=== PATIENT | male | born 1960 | race Caucasian/White ===

== ENCOUNTER 2018-12-27 09:54 | Observation (INO) | payer SELFPAY ==
[2018-12-27 10:18] LABS: Protime INR 0.89
[2018-12-27 10:37] LABS: Absolute Lymphocytes (CBC) 0.6 K/uL (0.7-4.9); Basophils % 0.8 % (0-1.3); Hematocrit 52.1 % (39.6-49.0); Lymphocytes % 12.8 % (15.3-44.8); MPV 7.5 fL (7.6-11.3); RBC Red Blood Cell Count 5.43 M/uL (4.33-5.43)
--- NOTE | 2018-12-27 10:38 | RAD REPORT ---
EXAM DESCRIPTION: RAD - Chest Single View - 12/27/2018 10:32 am CLINICAL HISTORY: CHEST PAIN Chest pain. COMPARISON: No comparisons FINDINGS: Portable technique limits examination quality. Small calcified granulomata are seen in the lungs. The lungs are otherwise clear. The heart is normal in size. No displaced fractures. IMPRESSION: No acute intrathoracic process suspected.
[2018-12-27 10:43] LABS: ALT/SGPT 42 U/L (12-78); AST/SGOT 34 U/L (15-37); Albumin 4.2 g/dL (3.4-5.0); Alkaline Phosphatase 77 U/L (45-117); BUN Blood Urea Nitrogen 5 mg/dL (7-18); Bicarbonate 26 mmol/L (21-32); Bilirubin Direct 0.3 mg/dL (0-0.2); Bilirubin Total 1.1 mg/dL (0.2-1.0); Glucose Level 107 mg/dL (74-106); Magnesium 2.2 mg/dL (1.8-2.4); NT PRO-BNP 43 pg/mL (<125); Protein, Total 7.5 g/dL (6.4-8.2); Sodium Level 130 mmol/L (136-145); Troponin (Emerg Dept Use Only) < 0.02 ng/mL (0.0-0.045)
--- NOTE | 2018-12-27 10:58 | EKG ---
Test Date: 2018-12-27 Test Time: 09:55:07 Certified Medicine Aide: PERCY MEASUREMENT RESULTS: Intervals: Rate: 107 VA: 158 QRSD: 80 QT: 314 QTc: 419 [place]: P: 61 VA: 158 QRS: 19 T: 63 INTERPRETIVE STATEMENTS: Sinus tachycardia Possible Left atrial enlargement Borderline ECG No previous ECG available for comparison Electronically Signed On 12-27-18 10:57:15 STEWARD/STEWARDESS BATH by Shawn Loredo
--- NOTE | 2018-12-27 11:23 | RAD REPORT ---
EXAM DESCRIPTION: CT - Chest For Pe Angio - 12/27/2018 11:12 am CLINICAL HISTORY: Chest pain. CHEST PAIN COMPARISON: No comparisons TECHNIQUE: CT angiogram of the pulmonary arteries was performed with MIP. All CT scans are performed using dose optimization technique as appropriate and may include automated exposure control or mA/KV adjustment according to patient size. FINDINGS: No evidence of pulmonary thromboembolism. No acute aortic finding demonstrated. The lungs are clear except for several small calcified granulomata bilaterally. No worrisome nodule, mass or infiltrate. No significant pericardial or pleural fluid. No concerning bony finding. IMPRESSION: No evidence of pulmonary thromboembolism. No acute lung findings.
--- NOTE | 2018-12-27 11:50 | ER ---
Nurse's Notes [facility] Name: Sukh Lam Age: 58 yrs Sex: Male : 1960 Arrival Date: 12/27/2018 Time: 09:59 Bed 16 Private MD: Diagnosis: Chest pain, unspecified Presentation: 12/27 09:59 Presenting complaint: EMS states: Left sided chest pain, radiates to left arm, rated jl7 8/10, cool and clammy on arrival. Initial HR 137, BP 165/110, 97% RA. 325 mg asp and Nitro SL x 1 given, pt report pain 3/10. HR 110s, BP 153/110, pain rated 3/10. Transition of care: patient was not received from another setting of care. Onset of symptoms was December 27, 2018 at 09:15. Risk Assessment: Do you want to hurt yourself or someone else? Patient reports no desire to harm self or others. Initial Sepsis Screen: Does the patient meet any 2 criteria? No. Patient's initial sepsis screen is negative. Does the patient have a suspected source of infection? No. Patient's initial sepsis screen is negative. Care prior to arrival: Medication(s) given: ASA, 325 mg, Nitro SL x 1 IV initiated. 20 GA, in the left antecubital area, Oxygen administered. via nasal cannula. 09:59 [facility] Of Ar[facility] 09:59 Acuity: JESSE 2 jl7 Historical: - Allergies: 10:05 PENICILLINS; jl7 - Home Meds: 10:05 None [Active]; jl7 - PMHx: 10:05 None; jl7 - PSHx: 10:05 Knee surgery; shoulder- right; jl7 - Immunization history:: Adult Immunizations unknown. - Social history:: Smoking status: Patient uses tobacco products, smokes one pack cigarettes per day. - Ebola Screening: : No symptoms or risks identified at this time. - Family history:: not pertinent. - Hospitalizations: : No recent hospitalization is reported. Screenin:05 Abuse screen: Denies threats or abuse. Denies injuries from another. Nutritional jl7 screening: No deficits noted. Tuberculosis screening: No symptoms or risk factors identified. Fall Risk IV access (20 points). Total Knutson Fall Scale indicates No Risk (0-24 pts). Assessment: 10:05 General: Appears in no apparent distress. uncomfortable, Behavior is calm, cooperative, jl7 appropriate for age. Pain: Complains of pain in mid-sternal area Pain radiates to left arm Pain currently is 3 out of 10 on a pain scale. at worst was 8 out of 10 on a pain scale. Quality of pain is described as dull, Pain began 30 min ago. Is intermittent. Neuro: Level of Consciousness is awake, alert, obeys commands, Oriented to person, place, time, situation. Cardiovascular: Heart tones S1 S2 present Patient's skin is warm and dry. Rhythm is sinus tachycardia. Respiratory: Airway is patent Respiratory effort is even, unlabored, Respiratory pattern is symmetrical, tachypnea Breath sounds are clear bilaterally. GI: No signs and/or symptoms were reported involving the gastrointestinal system. Patient currently denies nausea. : No signs and/or symptoms were reported regarding the genitourinary system. EENT: No signs and/or symptoms were reported regarding the EENT system. Derm: Skin is pink, warm \T\ dry. Musculoskeletal: No signs and/or symptoms reported regarding the musculoskeletal system. 11:00 Reassessment: Patient appears in no apparent distress at this time. No changes from jl7 previously documented assessment. Patient and/or family updated on plan of care and expected duration. Pain level reassessed. Patient is alert, oriented x 3, equal unlabored respirations, skin warm/dry/pink. 12:00 Reassessment: Patient appears in no apparent distress at this time. No changes from jl7 previously documented assessment. Patient and/or family updated on plan of care and expected duration. Pain level reassessed. Patient is alert, oriented x 3, equal unlabored respirations, skin warm/dry/pink. 12:03 Reassessment: Dr. Sung at bedside. jl7 13:15 Reassessment: Patient appears in no apparent distress at this time. No changes from jl7 previously documented assessment. Patient and/or family updated on plan of care and expected duration. Pain level reassessed. Patient is alert, oriented x 3, equal unlabored respirations, skin warm/dry/pink. Vital Signs: 10:05 BP 153 / 101; Pulse 115; Resp 22 S; Temp 98.3; Pulse Ox 100% on R/A; Pain 3/10; jl7 10:36 BP 137 / 104; Pulse 110; Resp 23 S; Pulse Ox 98% on R/A; jl7 12:01 BP 146 / 101; Pulse 98; Resp 23 S; Pulse Ox 96% on R/A; jl7 ED Course: 09:59 Patient arrived in ED. jl7 09:59 EKG done, by cath lab technologist. reviewed by Anand Espinal MD. at1 10:00 Sravani Messina MD is Attending Physician. ma2 10:02 Attending Physician role handed off by Sravani Messina MD rn 10:02 Anand Espinal MD is Attending Physician. rn 10:04 Triage completed. jl7 10:04 Initial lab(s) drawn, by me, sent to lab. Maintain EMS IV. Dressing intact. Good blood ms return noted. Site clean \T\ dry. Gauge \T\ site: 18g left ac. 10:05 Patient maintains SpO2 saturation greater than 95% on room air. jl7 10:05 Arm band placed on right wrist. jl7 10:05 Patient has correct armband on for positive identification. Bed in low position. Call jl7 light in reach. Side rails up X 1. broker assistant on. Pulse ox on. NIBP on. 10:34 Daryl Prieto, DARREN is Primary Nurse. jl7 10:36 XRAY Chest (1 view) In Process Unspecified. EDMS 11:13 CT Chest For PE Angio In Process Unspecified. EDMS 11:48 Rey Sung DO is Hospitalizing Provider. rn 13:58 No provider procedures requiring assistance completed. Patient admitted, IV remains in jl7 place. intact, No redness/swelling at site. Administered Medications: No medications were administered Outcome: 11:49 Decision to Hospitalize by Provider. rn 13:58 Admitted to Tele accompanied by tech, via wheelchair, room 209, with chart, Report jl7 called to DARREN Carpio 13:58 Condition: stable 13:58 Discharge instructions given to patient, Instructed on the need for admit, Demonstrated understanding of instructions. 14:02 Patient left the ED. jl7 Signatures: Dispatcher [employer] EDMS Ailyn Reeder ms Anand Espinal MD MD rn Cecilia Reed, hematologist oncologist EKG Tat1 Daryl Prieto RN RN [email or web address] Tristan Messinad, MD ma2
--- NOTE | 2018-12-27 11:50 | EDPHYS ---
Physician Documentation [facility] Name: Sukh Lam Age: 58 yrs Sex: Male : 1960 Arrival Date: 12/27/2018 Time: 09:59 Bed 16 Private MD: ED Physician Anand Espinal HPI: 12/27 11:42 This 58 yrs old Male presents to ER via EMS with complaints of Chest Pain > rn 29 y/o. 11:42 The patient or guardian reports chest pain that is located primarily in the anterior rn chest wall, left. Onset: just prior to arrival. The pain radiates to the left arm. Associated signs and symptoms: Pertinent positives: diaphoresis, lightheadedness, palpitations, shortness of breath, Pertinent negatives: abdominal pain, cough, syncope, vomiting. The chest pain is described as dull. Duration: The patient or guardian reports a single episode, that is still ongoing. Modifying factors: The symptoms are alleviated by NTG, the symptoms are aggravated by nothing. Severity of pain: At its worst the pain was moderate in the emergency department the pain has improved. The patient has not experienced similar symptoms in the past. Reports smoker, at work, at rest, sudden onset left sided chest pain radiating to left arm, diaphoresis, and sob.. Historical: - Allergies: 10:05 PENICILLINS; jl7 - Home Meds: 10:05 None [Active]; jl7 - PMHx: 10:05 None; jl7 - PSHx: 10:05 Knee surgery; shoulder- right; jl7 - Immunization history:: Adult Immunizations unknown. - Social history:: Smoking status: Patient uses tobacco products, smokes one pack cigarettes per day. - Ebola Screening: : No symptoms or risks identified at this time. - Family history:: not pertinent. - Hospitalizations: : No recent hospitalization is reported. ROS: 11:42 Constitutional: Negative for fever, chills, and weight loss, Eyes: Negative for injury, rn pain, redness, and discharge, Neck: Negative for injury, pain, and swelling, Cardiovascular: Negative for palpitations, and edema, Respiratory: Negative for cough, wheezing Abdomen/GI: Negative for abdominal pain, nausea, vomiting, diarrhea, and constipation, MS/Extremity: Negative for injury and deformity, Skin: Negative for injury, rash, and discoloration, Neuro: Negative for headache, weakness, numbness, tingling, and seizure. Exam: 10:03 ECG was reviewed by the Attending Physician. rn 11:42 Constitutional: This is a well developed, well nourished patient who is awake, alert, rn appears anxious Head/Face: Normocephalic, atraumatic. ENT: dry MM Cardiovascular: Tachycardic, regular. No pulse deficits. Respiratory: Lungs have equal breath sounds bilaterally, clear to auscultation and percussion. No rales, rhonchi or wheezes noted. No increased work of breathing, no retractions or nasal flaring. Abdomen/GI: Soft, non-tender MS/ Extremity: Pulses equal, no cyanosis. Neurovascular intact. Full, normal range of motion. Equal circumference. Neuro: Awake and alert, GCS 15, oriented to person, place, time, and situation. Cranial nerves II-XII grossly intact. Motor strength 5/5 in all extremities. Sensory grossly intact. Cerebellar exam normal. Vital Signs: 10:05 BP 153 / 101; Pulse 115; Resp 22 S; Temp 98.3; Pulse Ox 100% on R/A; Pain 3/10; jl7 10:36 BP 137 / 104; Pulse 110; Resp 23 S; Pulse Ox 98% on R/A; jl7 12:01 BP 146 / 101; Pulse 98; Resp 23 S; Pulse Ox 96% on R/A; jl7 MDM: 10:00 Patient medically screened. ma2 11:42 Differential diagnosis: acute myocardial infarction, acute pericarditis, anxiety, rn coronary artery disease chest wall pain, costochondritis, esophagitis, pleurisy, pneumothorax, pulmonary embolus, stable angina, unstable angina. HEART Score: History: Moderately Suspicious (1), ECG: Normal (0), Age: > 45 and < 65 years (1), Risk Factors: 1 or 2 risk factors (1), Troponin: < or = 1 x Normal Limit (0). The patient was not given aspirin in the Emergency Department. Administered by EMS. Data reviewed: vital signs, nurses notes, lab test result(s), EKG, radiologic studies, CT scan, plain films, and as a result, I will admit patient. Counseling: I had a detailed discussion with the patient and/or guardian regarding: the historical points, exam findings, and any diagnostic results supporting the discharge/admit diagnosis, lab results, radiology results, the need for further work-up and treatment in the hospital. Response to treatment: the patient's symptoms have mildly improved after treatment, and as a result, I will admit patient. Admission orders: after a detailed discussion of the patient's condition and case, the admit orders are written by me. ED course: Pt with symptoms concerning of cardiac etiology, improved after nitro, will admit for further w/u. . 12/27 10:02 Order name: Basic Metabolic Panel; Complete Time: : rn 12/27 10:02 Order name: CBC with Diff; Complete Time: rn 12/27 10:02 Order name: LFT's; Complete Time: rn 12/27 10:02 Order name: Magnesium; Complete Time: rn 12/27 10:02 Order name: NT PRO-BNP; Complete Time: : rn 12/27 10:02 Order name: PT-INR; Complete Time: rn 12/27 10:02 Order name: Troponin (emerg Dept Use Only); Complete Time: : rn 12/27 10:02 Order name: XRAY Chest (1 view); Complete Time: rn 12/27 10:02 Order name: EKG; Complete Time: : rn 12/27 10:02 Order name: Cardiac monitoring; Complete Time: : rn 12/27 10:02 Order name: EKG - Nurse/Tech; Complete Time: 10: rn 12/27 10:02 Order name: IV Saline Lock; Complete Time: : rn 12/27 10:03 Order name: CT Chest For PE Angio; Complete Time: 11: rn 12/27 12:25 Order name: Diet Heart Healthy; Complete Time: 12:26 jl7 12/27 10:02 Order name: Labs collected and sent; Complete Time: : rn 12/27 10:02 Order name: O2 Per Protocol; Complete Time: : rn 12/27 10:02 Order name: O2 Sat Monitoring; Complete Time: 10:04 rn EC:03 Rate is 107 beats/min. Rhythm is regular. QRS [place] is Normal. [place] interval is normal. rn QRS interval is normal. QT interval is normal. No Q waves. T waves are Normal. No ST changes noted. Clinical impression: Sinus tachycardia. Interpreted by me. Reviewed by me. Administered Medications: No medications were administered Disposition: 12/27/18 11:49 Hospitalization ordered by Rey Sung for Observation. Preliminary diagnosis is Chest pain, unspecified. - Bed requested for Telemetry/MedSurg (observation). - Status is Observation. jl7 - Condition is Stable. - Problem is new. - Symptoms have improved. UTI on Admission? No Signatures: Dispatcher [employer] EDMS Kristin Boothe, RN RN dw Anand Espinal MD MD rn Leal, Jahala, RN RN jl7 Sravani Messina MD MD ma2 Corrections: (The following items were deleted from the chart) 12:54 11:49 Hospitalization Ordered by Rey Sung DO for Observation. Preliminary dw diagnosis is Chest pain, unspecified. Bed requested for Telemetry/MedSurg (observation). Status is Observation. Condition is Stable. Problem is new. Symptoms have improved. UTI on Admission? No. rn 14:02 12:54 12/27/2018 11:49 Hospitalization Ordered by Rey Sung DO for Observation. jl7 Preliminary diagnosis is Chest pain, unspecified. Bed requested for Telemetry/MedSurg (observation). Status is Observation. Condition is Stable. Problem is new. Symptoms have improved. UTI on Admission? No. dw
[2018-12-27 14:30] VITALS: BMI 22.8
[2018-12-27] MEDS ORDERED: ACETAMINOPHEN 500 MG TAB PO PRN (14:36)
[2018-12-27] MEDS ORDERED: NITROGLYCERIN 0.4 MG/TAB SL PRN (14:36)
[2018-12-27] MEDS ORDERED: ONDANSETRON 4 MG/2 ML VIAL IV PRN (14:36)
[2018-12-27 15:49] LABS: CKMB Creatine Kinase MB < 1.0 ng/mL (0.3-3.6); Creatine Phosphokinase 56 U/L (39-308); Troponin I < 0.02 ng/mL (0.0-0.045)
[2018-12-27] MEDS: NA CHLORIDE 0.9% 1,000 ML IV SCH (16:20)
--- NOTE | 2018-12-27 17:45 | P.HP ---
Certification for Inpatient Patient admitted to: Observation With expected LOS: <2 Midnights Patient will require the following post-hospital care: None Practitioner: I am a practitioner with admitting privileges, knowledge of patient current condition, hospital course, and medical plan of care. Services: Services provided to patient in accordance with Admission requirements found in Title 42 Section 412.3 of the Code of Federal Regulations Patient History Date of Service: 12/27/18 [facility] Reason for admission: Chest pain History of Present Illness: 58-year-old male presented to the emergency room with chest pain. Patient reported chest pain at work. It was mainly to the left side. It would radiate to the left arm with noted numbness. The patient also had increased blood pressure with shortness of breath. This occurred at work. Patient was brought in by EMS. Patient was diaphoretic at that time. He rated the pain about a 8/10. Patient was given nitroglycerin and aspirin with improvement. Pain improved to 3/10. Patient reports not taking any prior medications. Patient does smoke about 1 pack per day. In the ER patient evaluated. Blood pressures were elevated. CT chest unremarkable for pulmonary embolism or acute lung problem. Chest x-ray showed COPD changes. White count 4.9, hemoglobin 18. Sodium 130, potassium 4.0. BUN of 5, creatinine 1.16 with a GFR of 64. Glucose 107. Initial troponin unremarkable. EKG showed no significant EKG changes. Patient was admitted for further evaluation and treatment. When I saw the patient in the ER, patient appeared much improved. Patient did not see prior medications for hypertension, diabetes, heart disease, or lung disease to smoking about 1 pack per day. He also drinks about 3-4 beers a night. Allergies Penicillins Allergy (Verified 12/27/18 14:30) Hives/Rash Home medications list reviewed: Yes Home Medications: NK [No Home Meds] 12/27/18 - Past Medical/Surgical History Diabetic: No -: Tobacco abuse -: Left Knee Surgery 2013 -: Right Shoulder Surgery 1984 Psychosocial/ Personal History: Patient is . He has 2 children. He works as a bay. - Family History Family History: Reviewed- Non-Contributory - Social History Smoking Status: Current every day smoker Counseled patient to stop smoking for: less than 10 minutes Smoking therapy provided: Yes Patient receptive to therapy: Yes Alcohol use: Yes CD- Drugs: No Caffeine use: Yes Place of Residence: Home Review of Systems General: As per HPI Eyes: Unremarkable ENT: Unremarkable Respiratory: Shortness of Breath, SOB with Excertion, As per HPI Cardiovascular: Chest Pain, Light Headedness, As per HPI Gastrointestinal: Unremarkable Genitourinary: Unremarkable Musculoskeletal: Unremarkable Integumentary: Unremarkable Neurological: As per HPI Lymphatics: Unremarkable Physical Examination - Vital Signs Temperature: 98.4 F Blood Pressure: 140/87 Pulse: 93 Respirations: 18 Pulse Ox (%): 97 - Physical Exam General: Alert, In no apparent distress, Oriented x3, Cooperative HEENT: Atraumatic, Normocephalic, PERRLA, Mucous membr. moist/pink Neck: Supple, No Thyromegaly Respiratory: Expiratory wheezes (Mild wheezing bilateral) Cardiovascular: Normal pulses, Regular rate/rhythm Gastrointestinal: Normal bowel sounds, Soft and benign, Non-distended, No tenderness, No masses, No rebound, No guarding Musculoskeletal: No erythema, No tenderness, No warmth Integumentary: No tenderness/swelling, No erythema, No warmth, No cyanosis Neurological: Normal speech, Normal strength at 5/5 x4 extr, Normal tone, Normal affect - Studies Laboratory Data (last 24 hrs) 12/27/18 10:05: PT 10.6, INR 0.89 12/27/18 10:05: WBC 4.9, Hgb 18.0 H, Hct 52.1 H, Plt Count 226 12/27/18 10:05: Sodium 130 L, Potassium 4.0, BUN 5 L, Creatinine 1.16, Glucose 107 H, Magnesium 2.2, Total Bilirubin 1.1 H, AST 34, ALT 42, Alkaline Phosphatase 77 Assessment and Plan - Plan Impression: Chest pain, shortness of breath suspect CAD Hypertension COPD Hyponatremia Tobacco abuse Alcohol abuse Plan: Chest pain, shortness of breath suspect CAD: Patient be admitted for further evaluation and treatment. Will monitor telemetry and cardiac enzymes. Will order echocardiogram to further evaluate. Will recheck chest x-ray tomorrow. Will start aspirin, DVT prophylaxis-Lovenox, metoprolol, and Lipitor. Will consult cardiology for further recommendation. Will keep the patient NPO after midnight as the patient may require further cardiac evaluation. Await further recommendations from cardiology. I will turn the service over to Dr. Villagran tomorrow. I will go over the plan of care with her. Anticipate discharge tomorrow if workup unremarkable and patient clinically stable. Hypertension: Will start blood pressure [id number] and lisinopril. Will monitor and adjust appropriately. COPD: Will start COPD medication. Patient will likely require COPD medication at discharge. Hyponatremia: Likely from dehydration. Will start IV fluids. Will monitor closely. Recheck lab in the morning. Encourage oral intake. Tobacco abuse: Tobacco cessation addressed in detail. Will provide nicotine patch. Alcohol abuse: Alcohol cessation education will be provided. Will check urine drug screen. Discharge Plan: Home Plan to discharge in: 24 Hours - Advance Directives Does patient have a Living Will: No Does patient have a Durable POA for Healthcare: No - Code Status/Comfort Care Code Status Assessed: Yes (Patient is full code) Time Spent Managing Pts Care (In Minutes): 55
[2018-12-27] MEDS ORDERED: IPRATROPIUM BROM 0.5MG/2.5ML NEB PRN (17:46)
[2018-12-27] MEDS ORDERED: ALBUTEROL 2.5 MG/3 ML NEB SOL NEB PRN (17:46)
[2018-12-27 19:14] LABS: Urine Appearance CLEAR; Urine Bilirubin NEGATIVE (NEG); Urine Blood NEGATIVE (NEG); Urine Color YELLOW; Urine Glucose NEGATIVE (NEG); Urine Protein NEGATIVE (NEG); Urine Specific Gravity >=1.030 (1.005-1.030); Urine pH 7.5 (5.0-7.0)
[2018-12-27 19:16] LABS: Urine Microscopic Reflex NO UMIC
[2018-12-27 19:23] LABS: Barbiturates NEGATIVE (NEGATIVE); Benzodiazepines NEGATIVE (NEGATIVE); Cocaine NEGATIVE (NEGATIVE); METHAMPHETAM NEGATIVE (NEGATIVE); Methadone NEGATIVE (NEGATIVE); Opiates NEGATIVE (NEGATIVE); Phencyclidine NEGATIVE (NEGATIVE); THC Cannibis NEGATIVE (NEGATIVE)
[2018-12-27] MEDS: ARFORMOTEROL TARTRATE 15 MCG/2 ML VIAL.NEB NEB SCH (20:15)
--- NOTE | 2018-12-27 20:24 | RAD REPORT ---
EXAM DESCRIPTION: CT - [id number] - 12/27/2018 8:12 pm CLINICAL HISTORY: Left-sided numbness, left-sided headache, neck pain COMPARISON: None. TECHNIQUE: Axial 5 mm thick images of the head were obtained. Axial 2 mm thick images of the cervic al spine were obtained with sagittal and coronal reconstruction images generated and reviewed. All CT scans are performed using dose optimization technique as appropriate and may include automated exposure control or mA/KV adjustment according to patient size. FINDINGS: No intracranial hemorrhage, mass, edema or acute intracranial finding. No suspicion for acute infarct ion. No extra-axial fluid collections. Mastoid air cells and paranasal sinuses are clear. No globe or orbit abnormality seen. Mild atrophy changes are present. Ventricles are in proportion to any volume loss. Cervical body height and alignment are normal. Mild C5-6 and C6-7 disc space narrowing present. No fr acture or acute bony abnormality. Degenerative changes are present at the dens C1 level. Facet joint degenerative changes are present multiple levels. Patient has very significant bilateral foraminal st enosis at C5-6 from uncovertebral joint hypertrophy. Mild foraminal encroachment changes are present at C6-7 No paraspinal mass or hematoma. IMPRESSION: Negative CT head examination for acute or significant finding. Cervical spine degenerative change present without fracture. Patient has significant bilateral forami nal stenosis at C5-6.
[2018-12-27] MEDS ORDERED: lisinopriL 10 MG TAB PO SCH (21:00)
[2018-12-27] MEDS ORDERED: ATORVASTATIN 40 MG TAB PO SCH (21:00)
--- NOTE | 2018-12-27 22:01 | CON ---
Identification: A 58-year-old man. Chief Complaint: Chest pain. History Of Present Illness: The patient felt well until this morning at work. He remembers exact ti me within a few minutes 8:30 a.m. He was in the break room when he felt under his left pectoral musc le, left axilla, a sharp stabbing pain. Later there was numbness in his fingers, is mostly gone away , still exists a little bit some 8 hours or so after it started. There have been 2 sets of enzymes t hat are normal, and his EKG looks normal. Patient does not have hypertension, diabetes, dyslipidemia . He gets checkups at the [facility]. He was a cigarette smoker, quit for 3 years, resumed again, and now quit as of this morning. He takes no medications. Reports an allergy to penicillin. Alcoho l use, moderate. Physical Examination: General: He is alert, oriented, pleasant, not in distress. Lungs: Clear. Cardiac: Normal. Neck: There is no carotid bruit. Extremities: Distal pulses are normal. No cyanosis, clubbing, or edema. His radial pulses are norm al. Skin: In both hands is warm, pink, well perfused. Vital Signs: His blood pressure, 144/91, pulse 85. Laboratory Data: Reveals all normal troponins. He is hemoconcentrated. His hemoglobin is 18.0, whe re he could be polycythemic. He is hyponatremic. The cause for this is a mystery without any medications to explain it on or stra nge diet habits. It is hard to fathom why his sodium is so low. I think the rubber belt splicer should be involved. Regarding this pain, it does not sound anything like an acute coronary syndrome, especiall y with normal EKG and lab tests. I will recommend we do a nuclear stress test and echo tomorrow. He can eat tonight. We should recheck his sodium tomorrow and see if on repeat testing, it comes up to normal, and any further testing on his heart will be determined by there was also a stress test and echo. On workup for hyponatremia if it turns out to be consistent then lab testing should be conside red. OMAR/HARI Voice ID: [id number] Report ID: [id number]
[2018-12-27] MEDS: METOPROLOL TAR 50 MG TAB PO SCH (22:03)
[2018-12-27 23:31] LABS: CKMB Creatine Kinase MB < 1.0 ng/mL (0.3-3.6); Creatine Phosphokinase 53 U/L (39-308); Troponin I < 0.02 ng/mL (0.0-0.045)
[2018-12-28] MEDS: NA CHLORIDE 0.9% 1,000 ML IV SCH (03:17)
[2018-12-28 06:19] LABS: Absolute Lymphocytes (CBC) 0.8 K/uL (0.7-4.9); Basophils % 1.4 % (0-1.3); Hematocrit 47.9 % (39.6-49.0); MPV 7.5 fL (7.6-11.3); RBC Red Blood Cell Count 4.97 M/uL (4.33-5.43)
[2018-12-28 06:32] LABS: Magnesium 2.3 mg/dL (1.8-2.4); Potassium 4.3 mmol/L (3.5-5.1)
[2018-12-28] MEDS: ARFORMOTEROL TARTRATE 15 MCG/2 ML VIAL.NEB NEB SCH (08:15)
[2018-12-28] MEDS ORDERED: ASPIRIN EC 81 MG TAB PO SCH (09:00)
[2018-12-28] MEDS: METOPROLOL TAR 50 MG TAB PO SCH (09:00)
[2018-12-28] MEDS ORDERED: NICOTINE 21 MG/PAT TD SCH (09:00)
[2018-12-28] MEDS ORDERED: ENOXAPARIN 40 MG/0.4 ML SQ SCH (09:00)
[2018-12-28 09:17] VITALS: O2SAT 97
--- NOTE | 2018-12-28 10:16 | RAD REPORT ---
EXAM DESCRIPTION: NM - Rest Stress Cardiac Imaging - 12/28/2018 10:01 am CLINICAL HISTORY: Chest pain COMPARISON: None. TECHNIQUE: The patient was administered approximately 10 mCi of Tc 99m Sestamibi prior to resting SP ECT imaging of the heart. The patient was then administered approximately 30 mCi of Tc 99m Sestamibi following exercise or pharmacologic stress. Multiplanar SPECT images were reviewed. FINDINGS: The end diastolic volume is 76 ml, the end systolic volume is 28 ml, and the ejection frac tion is 63 %. No stress-induced ischemic changes are identifiable. Diminished activity along the inferior wall base to apex does not change between rest and stress imaging. This is favored to be diaphragm attenuation artifact rather than inferior wall scarring. IMPRESSION: No stress ischemia. Inferior wall fixed defect favored to be attenuation artifact rather than inferior wall scarring. Normal ventricular volumes and ejection fraction.
[2018-12-28 12:25] VITALS: BP 132/89; TEMP 97.5
--- NOTE | 2018-12-28 13:05 | TREADMILL ---
70% H.R.: 85% H.R.: 136 90% H.R.: 100% H.R.: DX: CHEST PAIN, MYOCARDIAL INFARCTION WAS RULED OUT Date of Study: 12/28/2018 Ht: 5 11 Wt: 164 lb 0 oz Consulting Physician: BRENTON MEDICATIONS: TYLENOL, PROVENTIL, BROVANA, ASPIRIN, LIPTIOR, LOVENOX HISTORY: 58 YEAR OLD MALE WITH COMPLAINTS OF CHEST PAIN. DENIES ANY MEDICAL HISTORY. REPORTS EXPERIENCED LEFT SIDE CHEST PAIN RADIATING TO LEFT ARM. DENIES CHEST PAIN AT THIS TIME. POSITIVE SMOKER. PHYSICIAL EXAMINATION: RESTING B.P.: 125/96 RESTING H.R.: 71 RESTING EKG: NORMAL SINUS RHYTHM. PROTOCOL: MECHELLE CARDIOLITE EXERCISE TIME: 8:17 MAXIMUM HEART RATE: 142 % OF PREDICTED B.P. AT PEAK STRESS: 145/99 H.R. AT 1 MINUTE POST EXERCISE: 114 IMPRESSION: STOPPED FOR TARGET HEART RATE, FATIGUE AND SHORTNESS OF BREATH. NO ARRYTHMIAS NOTED. PATIENT DENIED CHEST PAIN. TOLERATED WELL.
--- NOTE | 2018-12-28 13:07 | ECHO ---
HEIGHT: 5 ft 11 in WEIGHT: 164 lb 0 oz DATE OF STUDY: 12/28/[address]: Rey Sung DO 2-DIMENSIONAL: YES M.MODE: YES DOPPLER: YES COLOR FLOW: YES TDS: YES PORTABLE: NO DEFINITY: NO BUBBLE STUDY: NO DIAGNOSIS: CHEST PAIN CARDIAC HISTORY: CATHERIZATION: NO SURGERY: NO PROSTHETIC VALVE: NO PACEMAKER: NO MEASUREMENTS (cm) DIASTOLIC (NORMALS) SYSTOLIC (NORMALS) IVSd 0.9 (0.6-1.2) LA Diam 2.7 (1.9-4.0) LVEF 57% LVIDd 3.3 (3.5-5.7) LVIDs 2.4 (2.0-3.5) %FS 29% LVPWd 1.0 (0.6-1.2) Ao Diam 2.0 (2.0-3.7) 2 DIMENSIONAL ASSESSMENT: RIGHT ATRIUM: NORMAL LEFT ATRIUM: NORMAL RIGHT VENTRICLE: NORMAL LEFT VENTRICLE: NORMAL TRICUSPID VALVE: NORMAL MITRAL VALVE: NORMAL PULMONIC VALVE: NORMAL AORTIC VALVE: NORMAL PERICARDIAL EFFUSION: NONE AORTIC ROOT: NORMAL LEFT VENTRICULAR WALL MOTION: NORMAL DOPPLER/COLOR FLOW: NORMAL COMMENTS: TECHNICALLY DIFFICULT STUDY. NORMAL LEFT VENTRICULAR SIZE AND FUNCTION. NO WALL MOTION ABNORMALITY. NO EFFUSION. TECHNOLOGIST: Shruthi REYES
--- NOTE | 2018-12-28 15:11 | P.SSS ---
Patient History Date of Service: 12/28/18 [facility] Reason for admission: Chest pain History of Present Illness: See HPI Allergies Penicillins Allergy (Verified 12/27/18 14:30) Hives/Rash Home Medications: NK [No Home Meds] 12/27/18 - Past Medical/Surgical History Diabetic: No -: Tobacco abuse -: Left Knee Surgery 2013 -: Right Shoulder Surgery 1984 Psychosocial/ Personal History: Patient is . He has 2 children. He works as a bay. - Family History Family History: Reviewed- Non-Contributory - Social History Smoking Status: Current every day smoker Alcohol use: Yes CD- Drugs: No Caffeine use: Yes Place of Residence: Home Review of Systems 10-point ROS is otherwise unremarkable Physical Examination - Vital Signs Temperature: 97.5 F Blood Pressure: 132/89 Pulse: 90 Respirations: 17 Pulse Ox (%): 99 - Physical Exam General: Alert, In no apparent distress HEENT: Atraumatic, PERRLA, Mucous membr. moist/pink, EOMI, Sclerae nonicteric Neck: Supple, 2+ carotid pulse no bruit, No LAD, Without JVD or thyroid abnormality Respiratory: Clear to auscultation bilaterally, Normal air movement Cardiovascular: Regular rate/rhythm, Normal S1 S2 Gastrointestinal: Normal bowel sounds, No tenderness Musculoskeletal: No tenderness Integumentary: No rashes Neurological: Normal gait, Normal speech, Normal strength at 5/5 x4 extr, Normal tone, Normal affect Lymphatics: No axilla or inguinal lymphadenopathy - Diagnosis (Problem(s)) (1) Chest pain Status: Acute (2) Hypertension Status: Acute (3) Alcohol abuse Status: Acute (4) Tobacco abuse Status: Acute Treatment Summary: Overall during the hospital stay patient remained stable Patient is initially admitted to the hospital for chest pain. Cardiology was consulted. Troponin x2 was negative. EKG was with nonspecific changes. Stress test and echocardiogram was done here in the hospital which were will within normal limits. Patient's chest pain did resolve while here in the hospital as well. At that time cardiology cleared the patient for discharge home and thus patient was discharged home under stable condition. - Disposition Disposition: ROUTINE DISCHARGE Condition: GOOD Diet: Regular Activity: Ad mylene
--- NOTE | 2018-12-28 19:58 | PN ---
Date of Progress Note: 12/28/2018 Mr. Lam had came in with atypical chest pain, hyponatremia. Sodium is pending this morning. Echocardiogram which was done is normal. Stress test which was done today was normal. From a cardi ac standpoint, he can go home. He needs to be followed up as far as his sodium is concerned. He con tinues to have some numbness in the left hand and arm that may be secondary to some kind of cervical spondylosis or nerve entrapment, I do not think cardiac or cardiovascular in nature. One thing regar ding his sodium, he said that he drinks 44 ounces of tea in the morning after that he drinks a lot a water that maybe was causing his sodium to be low. JOE/MODL Voice ID: [id number] Report ID: [id number]
== END 2018-12-28 14:47 | disposition home or self-care (01) ==
LOC: ER 09:54 → ERHOLD 12:18 → 2ND 13:58
PROVIDERS: ADMIT Family Medicine; ATTEND Family Medicine
DX: R07.9 Chest pain, unspecified (principal); I10 Essential (primary) hypertension; F10.10 Alcohol abuse, uncomplicated; E87.1 Hypo-osmolality and hyponatremia; J44.9 Chronic obstructive pulmonary disease, unspecified; F17.210 Nicotine dependence, cigarettes, uncomplicated; Z88.0 Allergy status to penicillin
CPT/HCPCS: 36415; 70450; 71045; 71275; 72125; 78452; 80048; 80061; 80076; 80307; 81003; 82550; 82553; 83735; 83880; 84484; 85025; 85610; 93005; 93017; 93306; 99285; A9500; G0378; J1650; J7030; J7605; Q9967